=== PATIENT | male | born 1980 | race African-American/Black ===

== ENCOUNTER 2017-12-15 11:03 | Emergency (ER) | payer OTHER ==
[~2017-12-15] VITALS: Ht 177.8 cm; Wt 81.7 kg
[2017-12-15 11:15] VITALS: TEMP 36.6; Ht 177.8 cm; Wt 81.7 kg
[2017-12-15] MEDS ORDERED: OXYCODONE HCL IR 5 MG TAB (IMMEDIATE RELEASE) PO STA (11:29)
[2017-12-15] MEDS ORDERED: CYAN100020 PO (11:49)
[2017-12-15] MEDS ORDERED: ERGO500037 PO (11:49)
[2017-12-15] MEDS ORDERED: ROSU5TAB PO (11:49)
[2017-12-15] MEDS ORDERED: FLUO10CA15 PO (11:49)
[2017-12-15] MEDS ORDERED: LYR50 PO (11:49)
--- NOTE | 2017-12-15 12:29 | DIAGNOSTIC IMAGING REPORT ---
SCROTAL ULTRASOUND CLINICAL HISTORY: Sudden onset L testicular pain. COMPARISON STUDY: None. TECHNIQUE: Grayscale and color and duplex Doppler sonography of the scrotum was performed. FINDINGS: The right testis measures 5.8 x 3.8 x 2.4 cm the left measures 5.7 x 4.2 x 2.6 cm. Color flow within each testis is present. There is apparent slight asymmetric increased vascularity of the left testis. There is no testicular mass. There is no evidence for epididymitis. IMPRESSION: 1. No sonographic evidence of testicular torsion. No testicular mass. 2. Apparent slight asymmetric increased vascularity of the left testis. This may be artifactual, particularly given lack of evidence for epididymitis. Orchitis is considered unlikely but could have this appearance. Electronically signed by: Elvin Razo M.D. 12/15/2017 12:27 PM Dictated Date/Time: 12/15/2017 12:21 PM
[2017-12-15] MEDS ORDERED: MoRPHine SULFATE 4 MG/ML 1 ML CARP\\VIAL IV STA ×3 (12:37→17:38)
[2017-12-15] MEDS ORDERED: ONDANSETRON INJ 2 MG/ML 2 ML VIAL IV STA (12:37)
[2017-12-15 13:07] LABS: BASO % 0.1 %; BASO ABS # 0.01 K/uL (0-0.2); EOS % 1.9 %; EOS ABS # 0.17 K/uL (0-0.5); HEMATOCRIT 39.6 % (42-52); HEMOGLOBIN 14.2 g/dL (14.0-18.0); IG# 0.01 K/uL (0.00-0.02); LYMPH % 13.2 %; LYMPH ABS # 1.16 K/uL (1.2-3.4); MEAN CORPUSCULAR HEMOGLOBIN 31.2 pg (25-34); MEAN CORPUSCULAR HGB CONC 35.9 g/dl (32-36); MEAN PLATELET VOLUME 10.1 fL (7.4-10.4); MONO % 9.3 %; MONO ABS # 0.82 K/uL (0.11-0.59); NEUT % 75.4 %; NEUT ABS # 6.63 K/uL (1.4-6.5); PLATELET COUNT 136 K/uL (130-400); RED CELL DISTRIBUTION WIDTH CV 12.3 % (11.5-14.5); RED CELL DISTRIBUTION WIDTH SD 39.4 fL (36.4-46.3)
[2017-12-15 13:17] LABS: ALBUMIN 3.8 gm/dl (3.4-5.0); CALCIUM 8.8 mg/dl (8.5-10.1); CREATININE 0.98 mg/dl (0.60-1.40); POTASSIUM 3.9 mmol/L (3.5-5.1)
--- NOTE | 2017-12-15 16:16 | DIAGNOSTIC IMAGING REPORT ---
TESTICULAR ULTRASOUND HISTORY: L scrotal pain COMPARISON: Testicular ultrasound 12/15/2017. FINDINGS: Right testis: 6.1 x 2 point x 3.6 cm. There are no intratesticular masses. Normal color flow. No hydrocele. A 6 mm epididymal head cyst. Left testis: 5.8 x 3.1 x 4.1 cm. There are no intratesticular masses. Slight increased color flow. No hydrocele. The epididymis is unremarkable. IMPRESSION: 1. No significant change compared the prior study. 2. Slight increased color flow within the left testis in comparison to the right. This may represent a mild orchitis. Electronically signed by: Clayton Linder M.D. 12/15/2017 4:15 PM Dictated Date/Time: 12/15/2017 4:12 PM
[2017-12-15] MEDS ORDERED: OXYC1TAB3 PO (17:11)
[2017-12-15] MEDS ORDERED: LEVO-366 PO (17:11)
[2017-12-15] MEDS ORDERED: CLB/200 PO (17:11)
[2017-12-15] MEDS ORDERED: OXYCODONE IR HOME PACK PO STA (17:12)
[2017-12-15] MEDS ORDERED: LEVOFLOXACIN 250 MG TAB PO STA (17:12)
--- NOTE | 2017-12-15 17:12 | EMERGENCY ROOM VISIT NOTE ---
History First contact with patient: 11:20 Chief Complaint: TESTICULAR PAIN Stated Complaint: TESTICULAR PAIN,POSSIBLE TORSION Nursing Triage Summary: Pt c/o testicular pain since around 10:00 today, states that he has a testicular torsion and reports having varicocele. History of Present Illness The patient is a 37 year old male who presents to the Emergency Room via private vehicle accompanied by with complaints of "testicular pain, possible torsion". The patient states that he has been experiencing intermittent left testicular pain or many years. He notes that he will develop pain in the testicles once every few years and was recently diagnosed with a varicocele a few years ago. He states that today, without injury he notes that he was resting and suddenly developed left testicular pain 1 hour prior to arrival. He notes that there was no injury. He rates his pain as a 10/10. He denies any concern for sexual transmitted infections. There are no fevers, chills or urinary symptoms. Review of Systems A complete 10-point Review of Systems was discussed with the patient, with pertinent positives and negatives listed in the History of Present Illness. All remaining Review of Systems questions can be considered negative unless otherwise specified. Past Medical/Surgical History testicular pain Family History No pertinent Social History Smoking Status: Never Smoker Pt. lives locally Current/Historical Medications Scheduled Celecoxib (CeleBREX), 1 CAP PO DAILY Cyanocobalamin (Vitamin B12), 1 TAB PO DAILY Ergocalciferol (Vitamin D 92909 Unit), 1 TAB PO DAILY Fluoxetine Hcl (Pmdd) (Prozac), 15 MG PO DAILY Levofloxacin (Levaquin), 500 MG PO DAILY Ondasetron Odt (Zofran Odt), 4 MG SL Q6H Pregabalin (Lyrica), 50 MG PO DAILY Rosuvastatin Calcium (Crestor), 1 DOSE PO DAILY Scheduled PRN Oxycodone Ir (Roxicodone Ir), 1-2 TAB PO Q4H PRN for Pain Physical Exam Vital Signs Date Time Temp Pulse Resp B/P (MAP) Pulse Ox O2 Delivery O2 Flow Rate FiO2 12/15/17 18:41 70 18 128/76 98 12/15/17 17:53 98 Room Air 12/15/17 16:44 68 18 116/62 98 Room Air 12/15/17 15:15 66 20 121/75 97 12/15/17 12:55 72 18 117/78 96 Room Air 12/15/17 11:15 36.6 75 18 123/70 98 Room Air Physical Exam VITAL SIGNS - Vital signs and nursing notes were reviewed. Stable. GENERAL -37-year-old male appearing his stated age who is in no acute distress. Communicates well with provider and answers questions appropriately. SKIN - Without rashes. No petechial rashes. The skin overlying the scrotum is unremarkable. ABDOMEN - Abdominal contour normal without pulsations or visible masses. Minimal lower abdominal tenderness noted. : There is 2 testes descended in the scrotum noted. Left testicle is higher than the right. There is slight fullness of the left testicle in size. It is tender to examination more at the superior aspect of the inferior aspect. There is no evidence of hernia. Penis unremarkable. Medical Decision & Procedures ER Provider Diagnostic Interpretation: SCROTAL ULTRASOUND CLINICAL HISTORY: Sudden onset L testicular pain. COMPARISON STUDY: None. TECHNIQUE: Grayscale and color and duplex Doppler sonography of the scrotum was performed. FINDINGS: The right testis measures 5.8 x 3.8 x 2.4 cm the left measures 5.7 x 4.2 x 2.6 cm. Color flow within each testis is present. There is apparent slight asymmetric increased vascularity of the left testis. There is no testicular mass. There is no evidence for epididymitis. IMPRESSION: 1. No sonographic evidence of testicular torsion. No testicular mass. 2. Apparent slight asymmetric increased vascularity of the left testis. This may be artifactual, particularly given lack of evidence for epididymitis. Orchitis is considered unlikely but could have this appearance. Electronically signed by: Elvin Razo M.D. 12/15/2017 12:27 PM Dictated Date/Time: 12/15/2017 12:21 PM TESTICULAR ULTRASOUND HISTORY: L scrotal pain COMPARISON: Testicular ultrasound 12/15/2017. FINDINGS: Right testis: 6.1 x 2 point x 3.6 cm. There are no intratesticular masses. Normal color flow. No hydrocele. A 6 mm epididymal head cyst. Left testis: 5.8 x 3.1 x 4.1 cm. There are no intratesticular masses. Slight increased color flow. No hydrocele. The epididymis is unremarkable. IMPRESSION: 1. No significant change compared the prior study. 2. Slight increased color flow within the left testis in comparison to the right. This may represent a mild orchitis. Electronically signed by: Clayton Linder M.D. 12/15/2017 4:15 PM Dictated Date/Time: 12/15/2017 4:12 PM Laboratory Results 12/15/17 12:45 Red Blood Count 4.55, Mean Corpuscular Volume 87.0, Mean Corpuscular Hemoglobin 31.2, Mean Corpuscular Hemoglobin Concent 35.9, Mean Platelet Volume 10.1, Neutrophils (%) (Auto) 75.4, Lymphocytes (%) (Auto) 13.2, Monocytes (%) (Auto) 9.3, Eosinophils (%) (Auto) 1.9, Basophils (%) (Auto) 0.1, Neutrophils # (Auto) 6.63, Lymphocytes # (Auto) 1.16, Monocytes # (Auto) 0.82, Eosinophils # (Auto) 0.17, Basophils # (Auto) 0.01 12/15/17 12:45 Test 12/15/17 11:50 12/15/17 12:45 Urine Color YELLOW Urine Appearance CLEAR (CLEAR) Urine pH >= 9.0 (4.5-7.5) Urine Specific [place] 1.013 (1.000-1.030) Urine Protein NEG (NEG) Urine Glucose (UA) NEG (NEG) Urine Ketones NEG (NEG) Urine Occult Blood NEG (NEG) Urine Nitrite NEG (NEG) Urine Bilirubin NEG (NEG) Urine Urobilinogen NEG (NEG) Urine Leukocyte Esterase NEG (NEG) White Blood Count 8.80 K/uL (4.8-10.8) Red Blood Count 4.55 M/uL (4.7-6.1) Hemoglobin 14.2 g/dL (14.0-18.0) Hematocrit 39.6 % (42-52) Mean Corpuscular Volume 87.0 fL (80-100) Mean Corpuscular Hemoglobin 31.2 pg (25-34) Mean Corpuscular Hemoglobin Concent 35.9 g/dl (32-36) Platelet Count 136 K/uL (130-400) Mean Platelet Volume 10.1 fL (7.4-10.4) Neutrophils (%) (Auto) 75.4 % Lymphocytes (%) (Auto) 13.2 % Monocytes (%) (Auto) 9.3 % Eosinophils (%) (Auto) 1.9 % Basophils (%) (Auto) 0.1 % Neutrophils # (Auto) 6.63 K/uL (1.4-6.5) Lymphocytes # (Auto) 1.16 K/uL (1.2-3.4) Monocytes # (Auto) 0.82 K/uL (0.11-0.59) Eosinophils # (Auto) 0.17 K/uL (0-0.5) Basophils # (Auto) 0.01 K/uL (0-0.2) RDW Standard Deviation 39.4 fL (36.4-46.3) RDW Coefficient of Variation 12.3 % (11.5-14.5) Immature Granulocyte % (Auto) 0.1 % Immature Granulocyte # (Auto) 0.01 K/uL (0.00-0.02) Anion Gap 8.0 mmol/L (3-11) Est Creatinine Clear Calc Drug Dose 104.5 ml/min Estimated GFR () 112.1 Estimated GFR (Non- 96.7 BUN/Creatinine Ratio 11.0 (10-20) Calcium Level 8.8 mg/dl (8.5-10.1) Total Bilirubin 0.5 mg/dl (0.2-1) Aspartate Amino Transf (AST/SGOT) 26 U/L (15-37) Alanine Aminotransferase (ALT/SGPT) 30 U/L (12-78) Alkaline Phosphatase 50 U/L (45-117) Total Protein 7.0 gm/dl (6.4-8.2) Albumin 3.8 gm/dl (3.4-5.0) Globulin 3.2 gm/dl (2.5-4.0) Albumin/Globulin Ratio 1.2 (0.9-2) Medications Administered Medications (Trade) Dose Ordered Sig/Kendal Route Start Time Stop Time Status Last Admin Dose Admin Oxycodone HCl (Roxicodone Immediate Rel Tab) 5 mg NOW STAT PO 12/15/17 11:29 12/15/17 11:31 DC 12/15/17 11:50 5 MG Morphine Sulfate (MoRPHine SULFATE INJ) 4 mg NOW STAT IV 12/15/17 12:37 12/15/17 12:38 DC 12/15/17 12:50 4 MG Ondansetron HCl (Zofran Inj) 4 mg NOW STAT IV 12/15/17 12:37 12/15/17 12:38 DC 12/15/17 12:50 4 MG Morphine Sulfate (MoRPHine SULFATE INJ) 4 mg NOW STAT IV 12/15/17 15:11 12/15/17 15:12 DC 12/15/17 15:19 4 MG Levofloxacin (Levaquin Tab) 500 mg NOW STAT PO 12/15/17 17:12 12/15/17 17:13 DC 12/15/17 17:49 500 MG Oxycodone HCl (Roxicodone Immediate Rel 5MG Home Pack) 1 homepack UD STAT PO 12/15/17 17:12 12/15/17 17:13 DC 12/15/17 18:37 1 HOMEPACK Morphine Sulfate (MoRPHine SULFATE INJ) 4 mg NOW STAT IV 12/15/17 17:38 12/15/17 17:39 DC 12/15/17 17:49 4 MG Ondansetron HCl (ZOFRAN ODT 4MG Home Pack) 1 homepack UD STAT PO 12/15/17 20:13 12/15/17 20:15 DC 12/15/17 20:13 1 HOMEPACK Medical Decision Patient was seen and evaluated as above. He presents to us today with left testicular pain. He is nontoxic on exam. He is vital signs are stable. Examination left testicle reveals tenderness however, emergent to testicular torsion is not apparent. Decision was made to obtain ultrasound and urine sample. No evidence of infection in the urine. Ultrasound does reveal a potential orchitis however no evidence of testicular torsion. It is important to note that torsion certainly is still possible given the normal ultrasound. Case was discussed with the attending physician, and subsequently the on-call urologist, Dr. Pinzon. Call took place at 12:40 PM. He recommended further controlling the patient's pain, and if pain persisted then to do a repeat ultrasound in a few hours. A potential early torsion is possible. IV access was initiated, and he was given morphine for pain. He was also given Zofran for nausea. His pain persisted. Decision was made to repeat the ultrasound. Concern for orchitis is noted. He was given morphine 2 other times. His pain is much more controlled. There is no concern of leukocytosis or anemia. There is no evidence of kidney or liver failure. He is to follow with urology. I did call Dr. Pinzon back after receiving a second ultrasound results and spoke with him at 4:35 PM. Recommendation is to give him Celebrex for the pain, and to have him follow-up in the outpatient setting. It is possible he may have a small appendage torsion, however at this time do not suspect testicular torsion. We believe he is stable for outpatient management. He will also be given Levaquin for any potential bacterial etiology of the orchitis. He appears stable for outpatient management and will also be given oxycodone for pain. Patient was educated upon management, educated upon worrisome symptoms which to return, had questions or discharge, was discharged home in good condition. I did receive a phone call after the patient had departed that he had vomited after dinner. I suspect this is likely from the pain medication. He notes that his pain is well controlled. He'll be given a Zofran home pack with a small prescription sent to the pharmacy. Care will be taken to not extend the duration of this prescription to long as this with the Levaquin may cause QT prolongation. In the evaluation and treatment of this patient the following differential diagnoses were entertained: Testicular torsion, orchitis, epididymitis, appendage torsion, among others. No red flags the [place] drug monitoring system. Impression Primary Impression: Testicular pain, left Additional Impression: Orchitis Departure Information Dispostion Home / Self-Care Condition GOOD Prescriptions Ondasetron Odt (ZOFRAN ODT) 4 Mg Tab 4 MG SL Q6H for Nausea, #15 TAB Prov: Josiah Murillo PA-C 12/15/17 Celecoxib (CeleBREX) 200 Mg Cap 1 CAP PO DAILY for 14 Days, #14 CAP 2 Refills Prov: Josiah Murillo PA-C 12/15/17 Levofloxacin (Levaquin) 500 Mg Tab 500 MG PO DAILY for 10 Days, #10 TAB Prov: Josiah Murillo PA-C 12/15/17 Oxycodone Ir (Roxicodone Ir) 5 Mg Tab 1-2 TAB PO Q4H Y for Pain, #15 TAB For Initial Treatment Prov: Josiah Murillo PA-C 12/15/17 Referrals Neida Grover (PCP) Durga Pinzon MD, Urology Forms WORK / SCHOOL INSTRUCTIONS, HOME CARE DOCUMENTATION FORM, IMPORTANT VISIT INFORMATION Patient Instructions My [facility] Additional Instructions You have been treated in the Emergency Department for testicular pain. You have received pain medicine in the emergency department which impairs your ability to operate a vehicle. It is illegal for you to drive after receiving these medicines. You have been prescribed oxycodone immediate release to be used for pain control. This is a narcotic medication. You cannot drive or consume alcohol while on this medicine. This medicine should only be used for pain that cannot be controlled with [id number] pain medicines. Levaquin 1 tablet every day for 10 days. Celebrex 1 tablet daily for 2 weeks. For pain control, you can use the following [id number] medicines: - Regular strength (325mg/tab) Tylenol (acetaminophen) 2 tabs every 4-6 hours as needed. Do not exceed 12 tablets in a 24 hour period. Avoid taking more than 3 grams (3000 mg) of Tylenol per day. This includes any other sources of acetaminophen you may take on a regular basis. Do not take any Aleve or ibuprofen with the Celebrex as this is a similar medication. Please call the urologist to schedule follow-up tomorrow. Please return with any new/concerning symptoms. Return to the Emergency Department if your current symptoms worsen despite treatment course outlined above, or if you develop any of the following symptoms : intractable pain despite aforementioned treatment course, loss of control of your bowel or bladder, numbness or tingling in your groin, or development of a fever. Problem Qualifiers
[2017-12-15 17:53] VITALS: O2SAT 98
[2017-12-15 18:41] VITALS: BP 128/76; PULSE 70; O2SAT 98
[2017-12-15] MEDS ORDERED: ONDANSETRON HOME PACK 4MG OD TAB PO STA (20:13)
[2017-12-15] MEDS ORDERED: ONDA4TAB10 SL (20:20)
== END 2017-12-15 18:43 | disposition home or self-care (01) ==
LOC: C.EDB 11:05 → C.EDA 18:43
DX: N50.812 Left testicular pain (principal)

== ENCOUNTER → 2017-12-30 | Outpatient (CLI) | payer OTHER ==
[~2017-12-30] MED LIST: CLB/200 PO; CYAN100020 PO; ERGO500037 PO; FLUO10CA15 PO; LYR50 PO; ONDA4TAB10 SL; OXYC1TAB3 PO; ROSU5TAB PO
== END | disposition home or self-care (01) ==
LOC: C.LABSPEC 11:20
PROVIDERS: ATTEND Urology
DX: R30.0 Dysuria (principal); R31.29 Other microscopic hematuria

== ENCOUNTER → 2017-12-31 | Outpatient (CLI) | payer OTHER ==
--- NOTE | 2017-12-31 07:31 | DIAGNOSTIC IMAGING REPORT ---
CT SCAN OF THE ABDOMEN AND PELVIS WITHOUT CONTRAST CLINICAL HISTORY: N50.819, N45.1, R30.0, R31.29 DYSURIA, EPIDIDYMITIS, IMMATURITY. TESTICULAR PAIN. COMPARISON STUDY: No previous studies for comparison. TECHNIQUE: CT scan of the abdomen and pelvis was performed from the lung bases to the proximal femurs. Images are reviewed in the axial, sagittal, and coronal planes. IV contrast was not administered for this examination. A dose lowering technique was utilized adhering to the principles of ALARA. CT DOSE: 412.24 mGy.cm FINDINGS: Lower chest: The heart is normal in size and configuration, without pericardial effusion. The lung bases and pleural spaces are clear. Liver: The unenhanced liver is normal in size, contour, and attenuation. There is no intrahepatic biliary ductal dilatation. Gallbladder: Unremarkable. Spleen: Normal in size and attenuation. Pancreas: Unremarkable. Adrenal glands: Unremarkable. Kidneys: The unenhanced kidneys are normal in size without hydronephrosis. There is no contour deforming renal mass lesion. No renal calculi are identified. Bowel: There are no transition zones indicate bowel obstruction. The appendix appears normal as visualized. There is no acute diverticulitis. There is mild fecal retention. Peritoneum: There is no intraperitoneal free air or abdominal ascites. Vasculature: The abdominal aorta is normal in course and caliber. Adenopathy: None. Pelvic viscera: The bladder, and pelvic viscera are unremarkable. Skeletal structures: No destructive osseous lesions are seen. IMPRESSION: 1. No renal, ureteral, or bladder calculi identified 2. No evidence of bowel obstruction. No evidence of free air 3. Fecal retention 4. No evidence of acute appendicitis. No evidence of acute diverticulitis. Electronically signed by: Chago Macedo M.D. 12/31/2017 7:29 AM Dictated Date/Time: 12/31/2017 7:25 AM
== END | disposition home or self-care (01) ==
LOC: C.CTS 06:45
PROVIDERS: ATTEND Urology
DX: R31.29 Other microscopic hematuria (principal); N45.1 Epididymitis; N50.819 Testicular pain, unspecified; R30.0 Dysuria; K59.00 Constipation, unspecified